=== PATIENT | male | born 2000 | race Two or more races ===

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

== ENCOUNTER 2018-02-21 01:16 | Emergency (ER) | payer MEDICAID ==
[~2018-02-21] VITALS: Ht 175.3 cm; Wt 127.0 kg
[2018-02-21] MEDS ORDERED: ACETAMINOPHEN 500 MG TABLET ONE (01:36)
[2018-02-21 01:58] LABS: BASOPHILS # (AUTO) 0.05 x10^3/uL (0-0.3); BASOPHILS % (AUTO) 1 % (0-1); EOSINOPHILS # (AUTO) 0.12 x10^3/uL (0-0.8); EOSINOPHILS % (AUTO) 1 % (1-7); LYMPHOCYTES # (AUTO) 3.13 x10^3/uL (1-6.1); LYMPHOCYTES % (AUTO) 33 % (22-44); MD NO; MEAN CORPUSCULAR HGB CONC 33.6 g/dL (33.2-36.2); MEAN CORPUSCULAR VOLUME 89.5 fL (81-97); MEAN PLATELET VOLUME 8.6 fL (7.4-10.4); MONOCYTES # (AUTO) 0.62 x10^3/uL (0-1.4); MONOCYTES % (AUTO) 7 % (2-9); NEUTROPHILS # (AUTO) 5.65 x10^3/uL (1.8-8.0); NEUTROPHILS % (AUTO) 59 % (42-75); PLATELET COUNT 257 x10^3/uL (130-400); RED BLOOD COUNT 5.15 x10^6/uL (4.38-5.82); RED CELL DISTRIBUTION WIDTH 12.5 % (9.4-14.8)
[2018-02-21] MEDS ORDERED: ACETAMINOPHEN 500 MG TABLET PO ONE (02:00)
[2018-02-21 02:01] LABS: MICROSCOPIC NOT IND
[2018-02-21 02:11] LABS: ALANINE AMINOTRANSFERASE 33 U/L (12-78); ALBUMIN 3.6 g/dL (3.4-5.0); ANION GAP 10 mmol/L (5-15); CALCIUM 8.6 mg/dL (8.5-10.1); CHLORIDE 106 mmol/L (98-107); CREATININE 1.02 mg/dL (0.7-1.3)
[2018-02-21 02:14] LABS: ALKALINE PHOSPHATASE 79 U/L (45-117); BILIRUBIN,TOTAL 0.3 mg/dL (0.2-1.0); TOTAL PROTEIN 6.9 g/dL (6.4-8.2)
[2018-02-21 02:41] LABS: CULTURE INDICATED? NO
[2018-02-21 02:59] VITALS: BP 119/68
== END 2018-02-21 03:06 | disposition home or self-care (01) ==
LOC: ED 03:00
DX: R10.32 Left lower quadrant pain (principal)
CPT/HCPCS: 36415; 80053; 81003; 85025; 99284

== ENCOUNTER 2018-03-03 01:12 | Emergency (ER) | payer MEDICAID ==
[~2018-03-03] VITALS: Ht 175.3 cm; Wt 128.8 kg
[2018-03-03 01:13] VITALS: BP 158/101
== END 2018-03-03 01:51 | disposition left against medical advice (07) ==
LOC: ED 01:45
DX: R10.9 Unspecified abdominal pain (principal); M54.9 Dorsalgia, unspecified; H92.03 Otalgia, bilateral; Z53.21 Procedure and treatment not carried out due to patient leaving prior to being seen by health care provider

== ENCOUNTER 2019-07-19 03:00 | Observation (INO) | payer MEDICAID, OTHER ==
[~2019-07-19] VITALS: Ht 175.3 cm; Wt 135.6 kg
--- NOTE | 2019-07-19 03:23 | NUR ---
MD AT BEDSIDE TO ASSESS PT
[2019-07-19] MEDS ORDERED: SODIUM CHLORIDE 0.9% 1,000ML IVBOLUS ONE (03:30)
[2019-07-19] MEDS ORDERED: SODIUM CHLORIDE FLUSH 10ML SYR IVF ONE (03:30)
[2019-07-19] MEDS ORDERED: MORPHINE SULFATE 4 MG/ML, 1ML IVPush PRN (03:30)
[2019-07-19] MEDS ORDERED: ACETAMINOPHEN 500 MG TABLET PO ONE (03:30)
[2019-07-19] MEDS ORDERED: ONDANSETRON 2MG/ML, 2ML IVPush ONE (03:30)
[2019-07-19] MEDS ORDERED: KETOROLAC 30 MG/1 ML IVPush ONE (03:30)
[2019-07-19] MEDS ORDERED: ONDANSETRON 2MG/ML, 2ML ONE (03:46)
[2019-07-19] MEDS ORDERED: ACETAMINOPHEN 500 MG TABLET ONE (03:46)
[2019-07-19] MEDS ORDERED: KETOROLAC 30 MG/1 ML ONE (03:46)
[2019-07-19 03:58] LABS: BASOPHILS % (AUTO) 0 % (0-1); EOSINOPHILS # (AUTO) 0.01 x10^3/uL (0-0.4); EOSINOPHILS % (AUTO) 0 % (1-7); LYMPHOCYTES # (AUTO) 1.12 x10^3/uL (1-3.4); LYMPHOCYTES % (AUTO) 6 % (22-44); MD NO; MEAN CORPUSCULAR HEMOGLOBIN 30.3 pg (27.5-34.5); MEAN CORPUSCULAR HGB CONC 34.4 g/dL (33.2-36.2); MEAN CORPUSCULAR VOLUME 88.3 fL (81-97); MEAN PLATELET VOLUME 8.8 fL (7.4-10.4); MONOCYTES # (AUTO) 0.37 x10^3/uL (0.2-0.8); MONOCYTES % (AUTO) 2 % (2-9); NEUTROPHILS # (AUTO) 15.97 x10^3/uL (1.8-6.8); NEUTROPHILS % (AUTO) 91 % (42-75); PLATELET COUNT 293 x10^3/uL (130-400); RED CELL DISTRIBUTION WIDTH 12.3 % (9.4-14.8)
[2019-07-19 03:58] LABS: RAPID INFLUENZA A Negative (Negative); RAPID INFLUENZA B Negative (Negative)
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
[2019-07-19 04:08] LABS: ALANINE AMINOTRANSFERASE 50 U/L (12-78); ALBUMIN 3.8 g/dL (3.4-5.0); ANION GAP 7 mmol/L (5-15); CALCIUM 8.6 mg/dL (8.5-10.1); CHLORIDE 108 mmol/L (98-107); CREATININE 1.11 mg/dL (0.7-1.3)
[2019-07-19 04:10] LABS: ALKALINE PHOSPHATASE 99 U/L (45-117); BILIRUBIN,TOTAL 0.3 mg/dL (0.2-1.0); TOTAL PROTEIN 8.1 g/dL (6.4-8.2)
--- NOTE | 2019-07-19 04:54 | NUR ---
HOSPITALIST AT BEDSIDE TO ASSESS PT
--- NOTE | 2019-07-19 05:07 | NUR ---
PT EDUCATED ON NEED FOR UA. PT STS HE MIGHT BE ABLE TO PROVIDE A SAMPLE AT THIS TIME
--- NOTE | 2019-07-19 05:50 | NUR ---
PER ERP NO ABX TO BE GIVEN AT THIS TIME. ERP ALSO UPDATED ON NO URINE AT THIS TIME.
[2019-07-19] MEDS ORDERED: PROMETHAZINE 25 MG/ML, 1ML IM PRN (06:00)
[2019-07-19] MEDS ORDERED: KETOROLAC 30 MG/1 ML IV PRN (06:00)
[2019-07-19] MEDS ORDERED: ONDANSETRON 2MG/ML, 2ML IVPush PRN (06:00)
--- NOTE | 2019-07-19 06:25 | NUR ---
REPORT TO FLOOR RN, ALL QUESTIONS ADDRESSED PT READY FOR TRANSFER TO ROOM AT THIS TIME
[2019-07-19 09:34] VITALS: BP 114/76
[2019-07-19] MEDS: LACTATED RINGERS 1,000 ML IV SCH ×2 (10:26→20:11)
[2019-07-19 11:11] LABS: MICROSCOPIC NOT IND
[2019-07-19 14:15] VITALS: BP 147/99
[2019-07-19] MEDS ORDERED: FLU VACC QS2019-20 36MOS UP/PF 0.5 ML IM-VACC ONE (16:30)
[2019-07-19] MEDS: HEPARIN 5,000 UNITS/ML, 1ML SQ SCH (18:09)
[2019-07-19] MEDS: DIPHENOXYLATE/ATROPINE TABLET PO PRN (18:09)
[2019-07-19] MEDS: ACETAMINOPHEN 325 MG TABLET PO PRN (18:09)
[2019-07-19 19:54] VITALS: BP 145/90
[2019-07-20] MEDS: DIPHENOXYLATE/ATROPINE TABLET PO PRN (02:12)
[2019-07-20] MEDS: HEPARIN 5,000 UNITS/ML, 1ML SQ SCH ×3 (02:12→17:27)
[2019-07-20] MEDS: ACETAMINOPHEN 325 MG TABLET PO PRN (02:12)
[2019-07-20 02:33] VITALS: BP 131/82
[2019-07-20] MEDS: LACTATED RINGERS 1,000 ML IV SCH ×3 (04:14→19:57)
[2019-07-20 06:40] LABS: BASOPHILS # (AUTO) 0.02 x10^3/uL (0-0.1); BASOPHILS % (AUTO) 0 % (0-1); EOSINOPHILS # (AUTO) 0.06 x10^3/uL (0-0.4); EOSINOPHILS % (AUTO) 1 % (1-7); LYMPHOCYTES # (AUTO) 1.38 x10^3/uL (1-3.4); LYMPHOCYTES % (AUTO) 25 % (22-44); MD NO; MEAN CORPUSCULAR HEMOGLOBIN 30.3 pg (27.5-34.5); MEAN CORPUSCULAR VOLUME 89.2 fL (81-97); MEAN PLATELET VOLUME 8.3 fL (7.4-10.4); MONOCYTES # (AUTO) 0.89 x10^3/uL (0.2-0.8); MONOCYTES % (AUTO) 16 % (2-9); NEUTROPHILS # (AUTO) 3.13 x10^3/uL (1.8-6.8); NEUTROPHILS % (AUTO) 57 % (42-75); PLATELET COUNT 217 x10^3/uL (130-400); RED BLOOD COUNT 4.95 x10^6/uL (4.38-5.82); RED CELL DISTRIBUTION WIDTH 12.7 % (9.4-14.8)
[2019-07-20 06:49] LABS: ANION GAP 5 mmol/L (5-15); CALCIUM 8.5 mg/dL (8.5-10.1); CHLORIDE 111 mmol/L (98-107); CREATININE 0.81 mg/dL (0.7-1.3)
[2019-07-20 06:52] LABS: CREATINE KINASE, TOTAL 68 U/L (39-308)
[2019-07-20 09:56] VITALS: BP 132/93
[2019-07-20] MEDS ORDERED: AMOXICILLIN/CLAV 500-125MG TABLET PO SCH (15:00)
[2019-07-20] MEDS ORDERED: AMOX-367 PO (15:25)
[2019-07-20 15:49] VITALS: BP 102/92
[2019-07-20 20:02] VITALS: BP 142/88
== END 2019-07-20 22:30 | disposition home or self-care (01) ==
LOC: ED 05:56 → EDIP 06:24 → INTOOBSV 06:24 → 3WST 06:37
PROVIDERS: ADMIT Family Medicine; ATTEND Internal Medicine
DX: J02.0 Streptococcal pharyngitis (principal); E87.1 Hypo-osmolality and hyponatremia; B34.9 Viral infection, unspecified; D72.829 Elevated white blood cell count, unspecified; R65.10 Systemic inflammatory response syndrome (SIRS) of non-infectious origin without acute organ dysfunction; R11.2 Nausea with vomiting, unspecified; E66.01 Morbid (severe) obesity due to excess calories; F12.10 Cannabis abuse, uncomplicated; F17.200 Nicotine dependence, unspecified, uncomplicated; Z79.899 Other long term (current) drug therapy; Z03.818 Encounter for observation for suspected exposure to other biological agents ruled out; Z23 Encounter for immunization
CPT/HCPCS: 36415; 71045; 80048; 80053; 81003; 82550; 83605; 84145; 85025; 87040; 87081; 87147; 87400; 87880; 90471; 90686; 93005; 96361; 96372; 96374; 96375; 99285; G0378; J1644; J1885; J2405; J7030; J7120

== ENCOUNTER 2019-08-11 16:06 | Emergency (ER) | payer OTHER ==
[~2019-08-11] VITALS: Ht 175.3 cm; Wt 131.5 kg
[~2019-08-11 16:06] MED LIST: AMOX-367 PO
[2019-08-11 16:10] VITALS: BP 160/97
--- NOTE | 2019-08-11 16:47 | NUR ---
ACOUSTIC WARFARE ANALYST: PT TO ROOM FROM LOBBY
[2019-08-11] MEDS ORDERED: KETOROLAC 30 MG/1 ML ONE (17:28)
[2019-08-11] MEDS ORDERED: KETOROLAC 30 MG/1 ML IM ONE (17:30)
--- NOTE | 2019-08-11 17:32 | NUR ---
PT MEDICATED PER MAR FOR PAIN.
--- NOTE | 2019-08-11 17:33 | NUR ---
PT TO [facility]IA [facility] AT THIS TIME.
[2019-08-11] MEDS ORDERED: HYDROcodone/APAP 5/325 TABLET PO STA (18:07)
[2019-08-11] MEDS ORDERED: CYCLOBENZAPRINE 10 MG TABLET PO STA (18:07)
[2019-08-11] MEDS ORDERED: CYCLOBENZAPRINE 10 MG TABLET ONE (18:13)
[2019-08-11] MEDS ORDERED: HYDROcodone/APAP 5/325 TABLET ONE (18:14)
--- NOTE | 2019-08-11 18:26 | NUR ---
PT MEDICATED PER JUN. PT PROVIDED SCRIPT AND D/C SUMMARY AND AMBULATES TO REGISTRATION DESK WITH STEADY GAIT FOR D/C HOME. PT DENIES ANY OTHER NEEDS PERTAINING TO THIS VISIT. ALL QUESTIONS ANSWERED. PT BEING PICKED UP BY PT COUSIN FOR SAFE D/C HOME.
== END 2019-08-11 18:29 | disposition home or self-care (01) ==
LOC: ED 17:18
DX: S39.012A Strain of muscle, fascia and tendon of lower back, initial encounter (principal); M54.31 Sciatica, right side; F17.200 Nicotine dependence, unspecified, uncomplicated; X50.0XXA Overexertion from strenuous movement or load, initial encounter; Y93.89 Activity, other specified; Y92.69 Other specified industrial and construction area as the place of occurrence of the external cause; Y99.0 Civilian activity done for income or pay
CPT/HCPCS: 72110; 96372; 99283; J1885

== ENCOUNTER 2019-09-07 00:36 | Emergency (ER) | payer OTHER ==
[~2019-09-07] VITALS: Ht 175.3 cm; Wt 134.2 kg
[2019-09-07 00:42] VITALS: BP 125/95
[2019-09-07] MEDS ORDERED: KETOROLAC 60 MG/2 ML ONE (01:06)
[2019-09-07] MEDS ORDERED: METHOCARBAMOL 750 MG TABLET ONE (01:06)
[2019-09-07] MEDS ORDERED: KETOROLAC 30 MG/1 ML IM ONE (01:30)
[2019-09-07] MEDS ORDERED: METHOCARBAMOL 750 MG TABLET PO ONE (01:30)
== END 2019-09-07 02:32 | disposition home or self-care (01) ==
LOC: ED 01:49
DX: S29.012A Strain of muscle and tendon of back wall of thorax, initial encounter (principal); R07.9 Chest pain, unspecified; F17.200 Nicotine dependence, unspecified, uncomplicated; W01.0XXA Fall on same level from slipping, tripping and stumbling without subsequent striking against object, initial encounter; Y93.89 Activity, other specified; Y92.89 Other specified places as the place of occurrence of the external cause; Y99.8 Other external cause status
CPT/HCPCS: 71046; 72110; 96372; 99284; J1885

== ENCOUNTER → 2019-10-23 | Outpatient (CLI) | payer OTHER | END | disposition home or self-care (01) | LOC: RAD 12:35 | PROVIDERS: ATTEND Family Medicine | DX: M41.84 Other forms of scoliosis, thoracic region (principal) | CPT/HCPCS: 72072; 72100 ==

== ENCOUNTER 2019-11-01 20:37 | Emergency (ER) | payer OTHER ==
[~2019-11-01] VITALS: Ht 175.3 cm; Wt 138.7 kg
[2019-11-01 20:38] VITALS: BP 145/97
[2019-11-01] MEDS ORDERED: KETOROLAC 30 MG/1 ML ONE (21:21)
[2019-11-01] MEDS ORDERED: DIAZEPAM 5 MG TABLET PO ONE (21:30)
[2019-11-01] MEDS ORDERED: KETOROLAC 30 MG/1 ML IM ONE (21:30)
[2019-11-01] MEDS ORDERED: HYDROcodone/APAP 5/325 TABLET PO ONE (21:30)
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
== END 2019-11-01 21:45 | disposition home or self-care (01) ==
LOC: ED 21:20
DX: S39.012A Strain of muscle, fascia and tendon of lower back, initial encounter (principal); X50.0XXA Overexertion from strenuous movement or load, initial encounter; Y93.89 Activity, other specified; Y92.89 Other specified places as the place of occurrence of the external cause; Y99.8 Other external cause status
CPT/HCPCS: 99283

== ENCOUNTER 2020-02-23 16:47 | Emergency (ER) | payer SELFPAY ==
[~2020-02-23] VITALS: Ht 175.3 cm; Wt 139.2 kg
[2020-02-23 16:56] VITALS: BP 129/85
== END 2020-02-23 19:12 | disposition home or self-care (01) ==
LOC: ED 17:30
DX: S00.531A Contusion of lip, initial encounter (principal); R68.84 Jaw pain; R42 Dizziness and giddiness; R05 Cough; F17.200 Nicotine dependence, unspecified, uncomplicated; Y04.0XXA Assault by unarmed brawl or fight, initial encounter; Y93.89 Activity, other specified; Y92.410 Unspecified street and highway as the place of occurrence of the external cause; Y99.8 Other external cause status
CPT/HCPCS: 70486; 99284